=== PATIENT | female | born 1950 | race Caucasian/White ===

== ENCOUNTER 2020-11-01 08:39 | Outpatient (REF) | payer MEDICARE, OTHER, SELFPAY ==
--- NOTE | 2020-11-01 08:42 | MM_ITS ---
EXAMINATION: MM SCREENING DIGITAL BREAST TOMOSYNTHESIS, BILATERAL CLINICAL INFORMATION: Screening. Asymptomatic. The lifetime risk of breast cancer based on the Tyrer-Cuzick Model is 6%. COMPARISON: Mammography: 07/30/2019, 07/03/2018, 07/01/2017 TECHNIQUE: Digital breast tomosynthesis is performed in both the craniocaudal and mediolateral oblique views along with computer-aided detection (CAD). Synthesized 2D images are generated from the tomosynthesis. FINDINGS: There are scattered areas of fibroglandular density (ACR BI-RADS breast composition Category b). There are no significant masses, abnormal calcifications, or other abnormalities. There are no significant changes. Skin contours are smooth. MM/MM tomosynthesis screening BI IMPRESSION: No mammographic evidence of malignancy. ASSESSMENT: BI-RADS 1: Negative RECOMMENDATION: Routine annual mammography screening. This patient's information was entered into a reminder system with a target due date for their next mammogram.
== END 2020-11-01 08:40 | disposition home or self-care (01) ==
LOC: HO.MAMMO 08:39
PROVIDERS: PCP Internal Medicine; Visit Provider Internal Medicine
DX: Z12.31 Encounter for screening mammogram for malignant neoplasm of breast (principal)
CPT/HCPCS: 77063; 77067

== ENCOUNTER 2020-12-23 06:29 | Day surgery (SDC) | payer MEDICARE, OTHER, SELFPAY ==
[2020-12-19 14:24] VITALS: BMI 40.3
--- NOTE | 2020-12-21 13:53 | HO.ANESPROP2 ---
Documented by User: Gisel William 12/21/20 13:53 HPI - Anesthesia Eval Consult details Narrative: 70yo F for Colonoscopy PMFSH Past Medical History Medical History (Updated 12/23/20 @ 07:25 by Lia Avalos) Depression HTN (hypertension) Hx of heartburn Hx of Lyme disease Increased BMI Murmur Post-nasal drip Sciatica of right side Snoring Surgical History Surgical History (Updated 12/23/20 @ 07:26 by Lia Avalos) H/O colonoscopy History of Hx of appendectomy Hx of cholecystectomy Hx of hand surgery Hx of hernia repair Social History Social History (Updated 12/19/20 @ 14:21 by Vida Ford) Alcohol intake: never Smoking Status: Never smoker Use of substances other than those prescribed or required for medical reasons: No Have you been hit, kicked, punched, or otherwise hurt by someone within the past year? If so, by whom?: No Advance Directives: No Advance Directives Information Provided: No Advance Directives on File: No Meds Allergies Allergy/AdvReac Type Severity Reaction Status Date / Time amoxicillin [Augmentin] Allergy Unknown vomiting Verified 12/23/20 06:42 clavulanic acid [Augmentin] Allergy Unknown vomiting Verified 12/23/20 06:42 Codeine Phosphate Allergy Unknown Vomiting Uncoded 12/23/20 06:42 Home Medications Medication Instructions Recorded Confirmed Type amlodipine 1 tab PO DAILY 12/19/20 12/23/20 History duloxetine 1 cap PO DAILY 12/19/20 12/19/20 History ezetimibe-simvastatin 1 tab PO DAILY 12/19/20 12/19/20 History hydrochlorothiazide 1 tab PO DAILY 12/19/20 12/19/20 History irbesartan 1 tab PO DAILY 12/19/20 12/19/20 History metoprolol succinate 150 mg PO DAILY 12/19/20 12/23/20 History Exam Exam Date and Time: December 21, 2020 135 Height,Weight and Vital Signs: Height 5 ft 4 in Weight 106.594 kg Assessment and Plan Assessment Anesthesia Assessment: Chart Reviewed Documented by User: Lia Avalos 12/23/20 07:30 [facility] Past Medical History Medical History (Updated 12/23/20 @ 07:25 by Lia Avalos) Depression HTN (hypertension) Hx of heartburn Hx of Lyme disease Increased BMI Murmur Post-nasal drip Sciatica of right side Snoring Family History Family history of problems with anesthesia: No Surgical History Surgical History (Updated 12/23/20 @ 07:26 by Lia Avalos) H/O colonoscopy History of Hx of appendectomy Hx of cholecystectomy Hx of hand surgery Hx of hernia repair History of Problems with Anesthesia: No Social History Social History (Updated 12/19/20 @ 14:21 by Vida Ford) Alcohol intake: never Smoking Status: Never smoker Use of substances other than those prescribed or required for medical reasons: No Have you been hit, kicked, punched, or otherwise hurt by someone within the past year? If so, by whom?: No Advance Directives: No Advance Directives Information Provided: No Advance Directives on File: No Meds Allergies Allergy/AdvReac Type Severity Reaction Status Date / Time amoxicillin [Augmentin] Allergy Unknown vomiting Verified 12/23/20 06:42 clavulanic acid [Augmentin] Allergy Unknown vomiting Verified 12/23/20 06:42 Codeine Phosphate Allergy Unknown Vomiting Uncoded 12/23/20 06:42 Home Medications Medication Instructions Recorded Confirmed Type amlodipine 1 tab PO DAILY 12/19/20 12/23/20 History duloxetine 1 cap PO DAILY 12/19/20 12/19/20 History ezetimibe-simvastatin 1 tab PO DAILY 12/19/20 12/19/20 History hydrochlorothiazide 1 tab PO DAILY 12/19/20 12/19/20 History irbesartan 1 tab PO DAILY 12/19/20 12/19/20 History metoprolol succinate 150 mg PO DAILY 12/19/20 12/23/20 History Exam Height,Weight and Vital Signs: Vital Signs Temp Pulse Resp BP Pulse Ox 12/23/20 06:44 98.9 F 105 H 18 177/90 H 94 Airway Mallampati Class: II TM Dist: >3cm Neck ROM: Full Loose/Missing/Broken Teeth: Yes (Extractions) Heart: RRR Lungs: CTAB Assessment and Plan Assessment Anesthesia Assessment: Anesthesia Plan Discussed and Chart Reviewed Final Anesthetic Review NPO: Yes ASA Class: III Final Preanesthetic Review: No Changes in Pt Med Stat, Meds/Allgs Chart Reviewed, Consent Obtained/Reviewed and Anes Risks/Benef Reviewed Patient Risk: Intermediate Procedure Risk: Low Assessment/Block/Sedation in SS: Assess/Block/Sedation-SS Anesthetic Plan Anesthetic Plan: MAC: Disposition: Standard PACU
[2020-12-23 06:44] VITALS: BP 177/90; PULSE 105; RESP 18; TEMP 37.2; O2SAT 94
[2020-12-23] MEDS: Lactated Ringers 1,000 ML 100 ML IVCONT (07:04)
--- NOTE | 2020-12-23 07:30 | P.HPSUR_ITS ---
Pre-Procedural Eval Section B Chief Complaint: screening Details of Present Illness: screening Relevant Family History (Specify if Yes): No Relevant Social History: None Present Medications: see Short Stay Collaborative assessment Medical History: No relevant PMH History of Previous Operations: No relevant previous surgery Allergies: Allergies Allergy/AdvReac Type Severity Reaction Status Date / Time amoxicillin [Augmentin] Allergy Unknown vomiting Verified 12/23/20 06:42 clavulanic acid [Augmentin] Allergy Unknown vomiting Verified 12/23/20 06:42 Codeine Phosphate Allergy Unknown Vomiting Uncoded 12/23/20 06:42 Review of Systems Sugical H&P ROS: Negative: Constitution, Cardiovascular, Respiratory, Neurological, Psychiatric, Hem-Onc, Allergic/Immunologic, Gastrointestinal, Genitourinary, Musculoskeletal, Integumentary, Endocrine and Eyes/Ears/No se/Throat Exam Surgical H&P Exam: Normal: HEENT, Normal: Heart, Normal: Lungs, Normal: Extremities, Normal: Abdomen, Normal: Skin and Normal: Neurological Plan Diagnosis/Plan: Unchanged I have reviewed the history and physical and performed a pertinent physical examination on my patient. No changes have occurred unless specified.
--- NOTE | 2020-12-23 07:51 | PM.OP ---
Brief Operative Note Date of Service: 12/23/20 Pre-op diagnosis: screening Post-op diagnosis: same (colon polyps) Procedure: colonoscopy Surgeon: Ranjit Lucero Anesthesia: MAC Estimated blood loss (mL): 5 Pathology: other (polyps x3) Condition: stable Disposition: PACU
[2020-12-23 07:53] VITALS: BP 131/82; PULSE 94; RESP 12; TEMP 36.4; O2SAT 96
[2020-12-23 08:08] VITALS: BP 151/89; PULSE 81; RESP 20; TEMP 36.4; O2SAT 98
--- NOTE | 2020-12-23 08:20 | OP_ITS ---
SURGEON: Ranjit Lucero MD INDICATIONS: Colon cancer screening and prior history of adenomatous colon polyps. PREOPERATIVE DIAGNOSIS: POSTOPERATIVE DIAGNOSIS: PROCEDURE PERFORMED: Colonoscopy to the terminal ileum with biopsy and snare polypectomy. ESTIMATED BLOOD LOSS: COMPLICATIONS: ANESTHESIA: ASSISTANTS: SPECIMENS: MEDICATIONS: Monitored anesthesia care. DESCRIPTION OF PROCEDURE: History and physical performed. The risks and benefits of the procedure were explained to the patient. Informed consent was obtained. The patient was placed in the left lateral decubitus position. A digital rectal exam was performed and was found to be normal. The Olympus pediatric video colonoscope was introduced into the rectum and advanced to the cecum without difficulty. The cecum was identified by transillumination, palpation, and identification of ileocecal valve. Examination was performed and the scope was removed. She tolerated the procedure well and was taken to recovery area in stable condition. FINDINGS: The terminal ileum was examined and appeared normal. The visualized colonic mucosa was normal. The quality of prep was good. There was scattered diverticulosis. Three polyps were identified. The first at 70 cm was removed with biopsy forceps measuring less than 5 mm. Two other polyps were removed with a snare at 45 and 40 cm measuring less than 10 mm. No other polyps were identified. Retroflexed examination showed small internal hemorrhoids. No other lesions were seen. IMPRESSION: Colon polyps. RECOMMENDATIONS: Follow up the biopsy results. MD VITALY Ortega/CHARLES / [id number] MTDD
--- NOTE | 2020-12-23 08:36 | HO.POSTANES ---
Post Anesthesia Evaluation Post Anesthesia Evaluation Vital Signs: Vital Signs Temp Pulse Resp BP Pulse Ox 12/23/20 08:08 97.6 F 81 20 151/89 H 98 12/23/20 07:53 97.6 F 94 12 131/82 96 12/23/20 06:44 98.9 F 105 H 18 177/90 H 94 Anesthesia: Monitored Mental Status: Awake Pain Control: Satisfactory Nausea/Vomiting: None Anesthesia-Related Issues: No Anes. Related Issues
== END 2020-12-23 08:40 | disposition home or self-care (01) ==
LOC: HO.SSS 06:29
PROVIDERS: PCP Internal Medicine; Visit Provider Internal Medicine Gastroenterology
PROC: 0DJD8ZZ Inspection of Lower Intestinal Tract, Via Natural or Artificial Opening Endoscopic (ICD-10-PCS; CPT 45378; principal; 2020-12-23 07:30)
DX: Z12.11 Encounter for screening for malignant neoplasm of colon (principal); D12.6 Benign neoplasm of colon, unspecified; I10 Essential (primary) hypertension; Z79.899 Other long term (current) drug therapy; Z86.010 Personal history of colon polyps; Z88.0 Allergy status to penicillin
CPT/HCPCS: 45380; 45385; 88305

== ENCOUNTER 2021-03-02 09:29 | Outpatient (REF) | payer MEDICARE, OTHER, SELFPAY ==
--- NOTE | ~2021-03-02 | MM_ITS ---
EXAMINATION: BONE DENSITOMETRY CLINICAL INDICATION: Asymptomatic menopausal state. COMPARISON: Previous BD dated 07/17/2018 and baseline BD dated 11/15/2008. TECHNIQUE: Using a [employer] DXA System (software version: 13.1) manufactured by [employer], dual-energy x-ray absorptiometry was performed of the lumbar spine and left hip. The images are of good technical quality. Summary results are attached. FINDINGS: AP SPINE L1-L4: Current: BMD 1.094 g/cm2, Z-score -0.2, T-score -0.7, normal, 4.7% decrease from previous, 12.6% increase from baseline (<5% change is not significant). Prior: BMD 1.148 g/cm2. Baseline: BMD 0.972 g/cm2. LEFT FEMUR, NECK: Current: BMD 0.931 g/cm2, Z-score 0.1, T-score -0.8, normal. Prior: BMD 0.938 g/cm2. Baseline: BMD 0.907 g/cm2. LEFT FEMUR, TOTAL: Current: BMD 1.124 g/cm2, Z-score 1.5, T-score 0.9, normal, 1.4% increase from previous, 5.0% increase from baseline (<5% change is not significant). Prior: BMD 1.108 g/cm2. Baseline: BMD 1.070 g/cm2. IDENTIFIED RISK FACTORS: Menopause. Height loss. HISTORY OF FRACTURE: None listed. MEDICATIONS: Calcium supplement and/or multivitamin. Vitamin D. MM/XR DEXA axial skeleton IMPRESSION: 1. DIAGNOSIS: Normal bone density based on the lowest T-score value of -0.8 in the femoral neck applying World Health Organization criteria. 2. 10-YEAR FRACTURE RISK PREDICTION, FRAX: Major osteoporotic fracture (clinical spine, forearm, hip or shoulder) 7.5%. Hip fracture 0.6%. 3. Treatment Recommendations: NOF guidelines recommend consideration for treatment in postmenopausal women and men age 50 and older presenting with the following: -A hip or vertebral (clinical or morphometric) fracture. -T-score less than or equal to -2.5 at the femoral neck or spine after appropriate evaluation to exclude secondary causes. -Low bone mass at the hip or spine and a 10-year fracture probability by FRAX of greater than or equal to 3% for hip fracture or greater than or equal to 20% for major osteoporotic fracture based on the [place] adapted WHO algorithm. 4. Other Recommendations: All treatment decisions require clinical judgment and consideration of individual patient factors, including patient preferences, comorbidities, previous drug use, risk factors not captured in the FRAX model (e.g. frailty, falls, vitamin D deficiency, increased bone turnover, interval significant decline in bone density) and possible under or overestimation of fracture risk by FRAX. FUTURE SCAN RECOMMENDATION: People with diagnosed cases of osteoporosis or at high risk for fracture should have regular bone mineral density tests. For patients eligible for Medicare, routine testing is allowed once every 2 years. The testing frequency can be increased to one year for patients who have rapidly progressing disease, those who are receiving or discontinuing medical therapy to restore bone mass, or have additional risk factors.
== END 2021-03-02 09:30 | disposition home or self-care (01) ==
LOC: HO.MAMMO 09:29
PROVIDERS: Visit Provider Obstetrics & Gynecology
DX: Z13.820 Encounter for screening for osteoporosis (principal); Z78.0 Asymptomatic menopausal state; Z79.899 Other long term (current) drug therapy
CPT/HCPCS: 77080

== ENCOUNTER 2021-03-20 09:25 | Outpatient (REF) | payer MEDICARE, OTHER, SELFPAY ==
[2021-03-20 10:32] LABS: Hematocrit 42.8 % (37-47); Mean Corpuscular HGB Conc 32.7 g/dl (31.0-35.0); Mean Corpuscular Hemoglobin 29.7 pg (27.0-33.0); Mean Corpuscular Volume 90.7 fL (80-98); Mean Platelet Volume 10.8 fL (9.4-12.3); Platelet Count 330 X10*3/uL (160-400); Red Blood Count 4.72 X10*6/uL (4.20-5.50); Red Cell Distribution Width 13.9 % (11.0-16.0); White Blood Count 7.3 X10*3/uL (4.8-10.8)
[2021-03-20 10:50] LABS: Creatinine Urine 128.71 mg/dL; Microalbum/Creatinine Ratio Ur 9.3 ug/mg cr
[2021-03-20 11:14] LABS: TSH reflex Free T4 0.54 uIU/mL (0.32-4.0)
[2021-03-20 11:16] LABS: Alanine Aminotransferase 41 U/L (0-31); Albumin Level 4.3 g/dL (3.5-5.0); Alkaline Phosphatase 70 U/L (39-117); Anion Gap 14 (12-20); Aspartate Amino Transferase 26 U/L (5-31); Bilirubin Total 1.7 mg/dL (0.0-1.0); Blood Urea Nitrogen 16 mg/dL (9-16); Calcium 9.7 mg/dL (8.4-10.2); Carbon Dioxide 29 mmol/L (22-29); Chloride 100 mmol/L (96-108); Cholesterol 160 mg/dL; Estimated Glomerular Filt Rate > 60; Glucose Random 128 mg/dL (60-115); HDL Cholesterol 40 mg/dL; LDL Cholesterol Calculated 83 mg/dl; Potassium 3.9 mmol/L (3.3-5.1); Sodium 139 mmol/L (135-145); Total Protein 7.3 g/dL (6.5-8.0); Triglycerides 187 mg/dL
== END 2021-03-20 09:26 | disposition home or self-care (01) ==
LOC: HO.LAB 09:25
PROVIDERS: PCP Internal Medicine; Visit Provider Internal Medicine
DX: Z00.01 Encounter for general adult medical examination with abnormal findings (principal); E78.2 Mixed hyperlipidemia; I10 Essential (primary) hypertension; R53.82 Chronic fatigue, unspecified
CPT/HCPCS: 36415; 80053; 80061; 82043; 84443; 85027

== ENCOUNTER 2021-11-22 09:38 | Outpatient (REF) | payer MEDICARE, OTHER, SELFPAY ==
--- NOTE | ~2021-11-22 | MM_ITS ---
EXAMINATION: MM SCREENING DIGITAL BREAST TOMOSYNTHESIS, BILATERAL CLINICAL INFORMATION: Screening. Asymptomatic. The lifetime risk of breast cancer based on the Tyrer-Cuzick Model is 6%. COMPARISON: Mammography: 11/01/2020, 07/30/2019, 07/03/2018, 07/01/2017 TECHNIQUE: Digital breast tomosynthesis is performed in both the craniocaudal and mediolateral oblique views along with computer-aided detection (CAD). Synthesized 2D images are generated from the tomosynthesis. FINDINGS: There are scattered areas of fibroglandular density (ACR BI-RADS breast composition Category b). Parenchymal pattern is similar to prior studies. There is no developing density or architectural abnormality. The axilla and skin contours are unremarkable. No significant changes. MM/MM tomosynthesis screening BI IMPRESSION: No mammographic evidence of malignancy. ASSESSMENT: BI-RADS 1: Negative RECOMMENDATION: Routine annual mammography screening. This patient's information was entered into a reminder system with a target due date for their next mammogram.
== END 2021-11-22 09:39 | disposition home or self-care (01) ==
LOC: HO.MAMMO 09:38
PROVIDERS: PCP Internal Medicine; Visit Provider Internal Medicine
DX: Z12.31 Encounter for screening mammogram for malignant neoplasm of breast (principal)
CPT/HCPCS: 77063; 77067

== ENCOUNTER 2023-01-11 08:51 | Outpatient (REF) | payer MEDICARE, OTHER, SELFPAY ==
--- NOTE | ~2023-01-11 | MM_ITS ---
EXAMINATION: MM SCREENING DIGITAL BREAST TOMOSYNTHESIS, BILATERAL CLINICAL INFORMATION: Screening. Asymptomatic. The lifetime risk of breast cancer based on the Tyrer-Cuzick Model is 6%. COMPARISON: Mammography: 11/22/2021, 11/01/2020, 07/30/2019 TECHNIQUE: Digital breast tomosynthesis is performed in both the craniocaudal and mediolateral oblique views along with computer-aided detection (CAD). Synthesized 2D images are generated from the tomosynthesis. FINDINGS: There are scattered areas of fibroglandular density (ACR BI-RADS breast composition Category b). There are no significant masses, abnormal calcifications, or other abnormalities. Parenchymal pattern is similar to prior studies. There is no developing density or architectural abnormality. The axilla and skin contours are unremarkable. No significant changes. MM/MM tomosynthesis screening BI IMPRESSION: No mammographic evidence of malignancy. ASSESSMENT: BI-RADS 1: Negative RECOMMENDATION: Routine annual mammography screening. This patient's information was entered into a reminder system with a target due date for their next mammogram.
== END 2023-01-11 08:52 | disposition home or self-care (01) ==
LOC: HO.MAMMO 08:51
PROVIDERS: PCP Internal Medicine; Visit Provider Internal Medicine
DX: Z12.31 Encounter for screening mammogram for malignant neoplasm of breast (principal)
CPT/HCPCS: 77063; 77067

== ENCOUNTER → 2024-01-30 13:00 | Outpatient (BNV) | payer MEDICARE, OTHER, SELFPAY | PROVIDERS: PCP Internal Medicine; Visit Provider Radiology Diagnostic Radiology | DX: Z12.31 Encounter for screening mammogram for malignant neoplasm of breast (principal) | CPT/HCPCS: 77063; 77067 ==

== ENCOUNTER 2024-01-30 13:14 | Outpatient (REF) | payer MEDICARE, OTHER, SELFPAY ==
--- NOTE | ~2024-01-30 | MM_ITS ---
EXAMINATION: MM SCREENING DIGITAL BREAST TOMOSYNTHESIS, BILATERAL CLINICAL INFORMATION: Screening. Asymptomatic. COMPARISON: Mammography: 01/11/2023, 11/22/2021, 11/01/2020, 07/30/2019, dating back to 2014. TECHNIQUE: Digital breast tomosynthesis is performed in both the craniocaudal and mediolateral oblique views along with computer-aided detection (CAD). Synthesized 2D images are generated from the tomosynthesis. FINDINGS: The breasts are almost entirely fatty (ACR BI-RADS breast composition Category a). There are no suspicious masses, suspicious grouped calcifications, or areas of architectural distortion in either breast. The parenchymal pattern is stable from prior exams. No skin or axillary abnormality. MM/MM tomosynthesis screening BI IMPRESSION: No mammographic evidence of malignancy. ASSESSMENT: BI-RADS BI-RADS 1 - Negative RECOMMENDATION: Routine annual mammography screening. 1 year F/U This examination should not preclude the clinical evaluation of a suspicious palpable abnormality. This patient's information was entered into a reminder system with a target due date for their next mammogram.
--- NOTE | ~2024-01-30 | MM_ITS ---
EXAMINATION: BONE DENSITOMETRY CLINICAL INDICATION: Osteopenia. COMPARISON: Previous BD dated 03/02/2021 and baseline BD dated 11/15/2008. TECHNIQUE: Using a [employer] DXA System (software version: 13.1) manufactured by [employer], dual-energy x-ray absorptiometry was performed of the lumbar spine and left hip. The images are of good technical quality. Summary results are attached. FINDINGS: LEFT FEMUR, NECK: Current: BMD 0.984 g/cm2, Z-score 0.7, T-score -0.4, normal. Prior: BMD 0.931 g/cm2. Baseline: BMD 0.907 g/cm2. LEFT FEMUR, TOTAL: Current: BMD 1.104 g/cm2, Z-score 1.5, T-score 0.8, normal, 1.8% decrease from previous, 3.2% increase from baseline (<5% change is not significant). Prior: BMD 1.124 g/cm2. Baseline: BMD 1.070 g/cm2. AP SPINE L1-L4: Current: BMD 1.200 g/cm2, Z-score 0.7, T-score 0.2, normal, 9.7% increase from previous, 23.5% increase from baseline (<5% change is not significant). Prior: BMD 1.094 g/cm2. Baseline: BMD 0.972 g/cm2. IDENTIFIED RISK FACTORS: Menopause, height loss, thiazide. HISTORY OF FRACTURE: None listed. MEDICATIONS: Calcium. MM/XR DEXA axial skeleton IMPRESSION: 1. DIAGNOSIS: Normal bone density based on the lowest T-score value of -0.4 in the femoral neck applying World Health Organization criteria. 2. 10-YEAR FRACTURE RISK PREDICTION, FRAX: According to the guidelines, FRAX calculation should only be performed on patients in the osteopenia bone density category. Therefore, FRAX was not performed on this patient. 3. Treatment Recommendations: NOF guidelines recommend consideration for treatment in postmenopausal women and men age 50 and older presenting with the following: -A hip or vertebral (clinical or morphometric) fracture. -T-score less than or equal to -2.5 at the femoral neck or spine after appropriate evaluation to exclude secondary causes. -Low bone mass at the hip or spine and a 10-year fracture probability by FRAX of greater than or equal to 3% for hip fracture or greater than or equal to 20% for major osteoporotic fracture based on the [place] adapted WHO algorithm. 4. Other Recommendations: All treatment decisions require clinical judgment and consideration of individual patient factors, including patient preferences, comorbidities, previous drug use, risk factors not captured in the FRAX model (e.g. frailty, falls, vitamin D deficiency, increased bone turnover, interval significant decline in bone density) and possible under or overestimation of fracture risk by FRAX. FUTURE SCAN RECOMMENDATION: People with diagnosed cases of osteoporosis or at high risk for fracture should have regular bone mineral density tests. For patients eligible for Medicare, routine testing is allowed once every 2 years. The testing frequency can be increased to one year for patients who have rapidly progressing disease, those who are receiving or discontinuing medical therapy to restore bone mass, or have additional risk factors.
== END 2024-01-30 13:15 | disposition home or self-care (01) ==
LOC: HO.MAMMO 13:14
PROVIDERS: PCP Internal Medicine; Visit Provider Internal Medicine
DX: Z12.31 Encounter for screening mammogram for malignant neoplasm of breast (principal); Z13.820 Encounter for screening for osteoporosis; M85.80 Other specified disorders of bone density and structure, unspecified site; Z78.0 Asymptomatic menopausal state
CPT/HCPCS: 77063; 77067; 77080

== ENCOUNTER 2025-01-05 06:19 | Day surgery (SDC) | payer MEDICARE, OTHER, SELFPAY ==
[2024-12-31 10:57] VITALS: BMI 40.3
--- NOTE | 2025-01-01 09:12 | HO.ANESPROP2 ---
Documented by User: Gisel William NP 01/01/25 09:12 HPI - Anesthesia Eval Consult details Narrative: 74yo F for Colonoscopy PMFSH Active Problems Active Problems: All Active Problems H/O colonoscopy (Acute) Snoring (Acute) Increased BMI (Acute) Past Medical History Medical History Snoring Increased BMI Hx of heartburn Hx of Lyme disease Sciatica of right side Depression HTN (hypertension) Post-nasal drip Murmur Family History Family history of problems with anesthesia: No Surgical History Surgical History Hx of tonsillectomy H/O colonoscopy Hx of hand surgery Hx of hernia repair Hx of appendectomy Hx of cholecystectomy History of History of Problems with Anesthesia: No Social History Social History Alcohol intake: never Patient Tobacco Use Status: Never used Tobacco Use of substances other than those prescribed or required for medical reasons: No Are you DNR?: No Advance Directives: No Advance Directives Information Provided: Yes Meds Allergies Allergy/AdvReac Type Severity Reaction Status Date / Time amoxicillin [Augmentin] Allergy Intermediate vomiting Verified 01/05/25 06:50 clavulanic acid [Augmentin] Allergy Intermediate vomiting Verified 01/05/25 06:50 codeine Allergy Intermediate Vomiting Verified 01/05/25 06:50 chocolate Allergy Unknown Unknown Verified 01/05/25 06:50 oxycodone Allergy Unknown Unknown Verified 01/05/25 06:50 shellfish derived [shellfish] Allergy Unknown Unknown Verified 01/05/25 06:50 Home Medications ?Medication ?Instructions ?Recorded ?Confirmed ?Last Taken ?Type amlodipine 5 mg tablet 1 tab PO DAILY 12/19/20 01/05/25 01/05/25 06:00 History duloxetine 30 mg capsule,delayed 2 cap PO DAILY 12/19/20 01/05/25 Unknown History release ezetimibe 10 mg-simvastatin 20 mg 1 tab PO DAILY 12/19/20 01/05/25 Unknown History tablet hydrochlorothiazide 25 mg tablet 1 tab PO DAILY 12/19/20 01/05/25 Unknown History irbesartan 300 mg tablet 1 tab PO DAILY 12/19/20 01/05/25 Unknown History metoprolol succinate 100 mg 200 mg PO DAILY 12/19/20 01/05/25 01/05/25 06:00 History capsule sprinkle, ext. release 24 hr metformin 500 mg tablet 500 mg PO DAILY 12/31/24 01/05/25 Unknown History Exam Height,Weight and Vital Signs: Height 5 ft 4 in Weight 106.594 kg Assessment and Plan Assessment Anesthesia Assessment: Chart Reviewed Final Anesthetic Review Family History of Problems with Anesthesia: No History of Problems with Anesthesia: No Documented by User: Pawel Cabezas MD 01/05/25 08:01 [facility], [facility] Past Medical History Medical History Snoring Increased BMI Hx of heartburn Hx of Lyme disease Sciatica of right side Depression HTN (hypertension) Post-nasal drip Murmur Surgical History Surgical History Hx of tonsillectomy H/O colonoscopy Hx of hand surgery Hx of hernia repair Hx of appendectomy Hx of cholecystectomy History of Social History Social History Alcohol intake: never Patient Tobacco Use Status: Never used Tobacco Use of substances other than those prescribed or required for medical reasons: No Are you DNR?: No Advance Directives: No Advance Directives Information Provided: Yes Meds Allergies Allergy/AdvReac Type Severity Reaction Status Date / Time amoxicillin [Augmentin] Allergy Intermediate vomiting Verified 01/05/25 06:50 clavulanic acid [Augmentin] Allergy Intermediate vomiting Verified 01/05/25 06:50 codeine Allergy Intermediate Vomiting Verified 01/05/25 06:50 chocolate Allergy Unknown Unknown Verified 01/05/25 06:50 oxycodone Allergy Unknown Unknown Verified 01/05/25 06:50 shellfish derived [shellfish] Allergy Unknown Unknown Verified 01/05/25 06:50 Home Medications ?Medication ?Instructions ?Recorded ?Confirmed ?Last Taken ?Type amlodipine 5 mg tablet 1 tab PO DAILY 12/19/20 01/05/25 01/05/25 06:00 History duloxetine 30 mg capsule,delayed 2 cap PO DAILY 12/19/20 01/05/25 Unknown History release ezetimibe 10 mg-simvastatin 20 mg 1 tab PO DAILY 12/19/20 01/05/25 Unknown History tablet hydrochlorothiazide 25 mg tablet 1 tab PO DAILY 12/19/20 01/05/25 Unknown History irbesartan 300 mg tablet 1 tab PO DAILY 12/19/20 01/05/25 Unknown History metoprolol succinate 100 mg 200 mg PO DAILY 12/19/20 01/05/25 01/05/25 06:00 History capsule sprinkle, ext. release 24 hr metformin 500 mg tablet 500 mg PO DAILY 12/31/24 01/05/25 Unknown History Exam Airway Mallampati Class: III TM Dist: >3cm Neck ROM: Full Assessment and Plan Assessment Anesthesia Assessment: Anesthesia Plan Discussed Final Anesthetic Review NPO: Yes ASA Class: III Final Preanesthetic Review: No Changes in Pt Med Stat, Consent Obtained/Reviewed and Anes Risks/Benef Reviewed Patient Risk: Intermediate Procedure Risk: Low Anesthetic Plan Anesthetic Plan: MAC: Disposition: Standard PACU
[2025-01-05 07:04] LABS: Glucose, Whole Blood 147 mg/dL (60-115)
[2025-01-05 07:09] VITALS: BP 155/83; PULSE 93; RESP 16; TEMP 37.5; O2SAT 94; BMI 40.1
[2025-01-05] MEDS: Lactated Ringers 1,000 ML 100 ML IVCONT (07:24)
--- NOTE | 2025-01-05 07:31 | MHC.SHP ---
Pre-Procedural Eval Section A - 24 Hr Update-Section A only Date of Service: 01/05/25 Section B - Complete if H&P > 30 days Chief Complaint: screening Details of Present Illness: see H&P no changes Relevant Family History (Specify if Yes): No Relevant Social History: None Present Medications: see Short Stay Collaborative assessment Medical History: No relevant PMH History of Previous Operations: No relevant previous surgery Allergies: Allergies Allergy/AdvReac Type Severity Reaction Status Date / Time amoxicillin [Augmentin] Allergy Intermediate vomiting Verified 01/05/25 06:50 clavulanic acid [Augmentin] Allergy Intermediate vomiting Verified 01/05/25 06:50 codeine Allergy Intermediate Vomiting Verified 01/05/25 06:50 chocolate Allergy Unknown Unknown Verified 01/05/25 06:50 oxycodone Allergy Unknown Unknown Verified 01/05/25 06:50 shellfish derived [shellfish] Allergy Unknown Unknown Verified 01/05/25 06:50 Review of Systems Sugical H&P ROS: Negative: Constitution, Cardiovascular, Respiratory, Neurological, Psychiatric, Hem-Onc, Allergic/Immunologic, Gastrointestinal, Genitourinary, Musculoskeletal, Integumentary, Endocrine and Eyes/Ears/Nose/Throat Exam Surgical H&P Exam: Normal: HEENT, Normal: Heart, Normal: Lungs, Normal: Extremities, Normal: Abdomen, Normal: Skin and Normal: Neurological Plan Diagnosis/Plan: Unchanged I have reviewed the history and physical and performed a pertinent physical examination on my patient. No changes have occurred unless specified. Time Spent With Patient Time: Total time managing care of this patient today ____ minutes.
[2025-01-05 08:13] VITALS: BP 96/53; PULSE 76; RESP 16; TEMP 36.1; O2SAT 94
--- NOTE | 2025-01-05 08:16 | OP_ITS ---
DATE OF SERVICE: 01/05/2025 SURGEON: Ranjit Lucero MD INDICATIONS: Colon cancer screening. PREOPERATIVE DIAGNOSIS: POSTOPERATIVE DIAGNOSIS: PROCEDURE PERFORMED: Colonoscopy to the terminal ileum with snare polypectomy. ESTIMATED BLOOD LOSS: COMPLICATIONS: ANESTHESIA: Monitored anesthesia care. ASSISTANTS: SPECIMENS: DESCRIPTION OF PROCEDURE: A history and physical were performed. The risks and benefits of the procedure were explained to the patient and informed consent was obtained. The patient was placed in the left lateral decubitus position. A digital rectal exam was performed and was found to be normal. The Olympus pediatric video colonoscope was introduced into the rectum and advanced to the cecum. The cecum was identified by transillumination, palpation, and identification of the ileocecal valve. Examination was performed and the scope was removed. She tolerated the procedure well and was taken to recovery in stable condition. FINDINGS: The terminal ileum was examined and appeared normal. The visualized colonic mucosa was normal. The quality of prep was good. Three polyps were removed with a snare; all measured less than 10 mm. These were located in the cecum at 50 cm and 40 cm. There was mild sigmoid diverticulosis. Retroflexed examination showed small internal hemorrhoids. IMPRESSION: Colon polyps. RECOMMENDATION: Follow up the biopsy results. MD VITALY Ortega/MODL / [id number]
[2025-01-05 08:28] VITALS: BP 140/72; PULSE 74; RESP 18; TEMP 36.4; O2SAT 95
== END 2025-01-05 08:58 | disposition home or self-care (01) ==
PROVIDERS: PCP Internal Medicine; Visit Provider Internal Medicine Gastroenterology
PROC: 0DJD8ZZ Inspection of Lower Intestinal Tract, Via Natural or Artificial Opening Endoscopic (ICD-10-PCS; CPT 45378; principal; 2025-01-05 07:30)
DX: Z12.11 Encounter for screening for malignant neoplasm of colon (principal); Z86.0101 Personal history of adenomatous and serrated colon polyps; D12.0 Benign neoplasm of cecum; D12.5 Benign neoplasm of sigmoid colon; K57.30 Diverticulosis of large intestine without perforation or abscess without bleeding; K64.8 Other hemorrhoids; I10 Essential (primary) hypertension; E78.5 Hyperlipidemia, unspecified; E11.9 Type 2 diabetes mellitus without complications; F32.A Depression, unspecified; Z86.19 Personal history of other infectious and parasitic diseases; Z79.84 Long term (current) use of oral hypoglycemic drugs; Z79.899 Other long term (current) drug therapy; Z88.1 Allergy status to other antibiotic agents; Z88.5 Allergy status to narcotic agent; Z98.890 Other specified postprocedural states
CPT/HCPCS: 45385; 82947; 88305; J2003; J2704

== ENCOUNTER 2025-09-07 13:32 | Outpatient (REF) | payer MEDICARE, OTHER, SELFPAY | END 2025-09-07 13:33 | disposition home or self-care (01) | LOC: HO.MAMMO 13:32 | PROVIDERS: PCP Internal Medicine; Visit Provider Internal Medicine | DX: Z12.31 Encounter for screening mammogram for malignant neoplasm of breast (principal) | CPT/HCPCS: 77063; 77067 ==

== ENCOUNTER → 2025-09-07 13:45 | Outpatient (BNV) | payer MEDICARE, OTHER, SELFPAY | PROVIDERS: PCP Internal Medicine; Visit Provider Internal Medicine | DX: Z12.31 Encounter for screening mammogram for malignant neoplasm of breast (principal) | CPT/HCPCS: 77063; 77067 ==

== ENCOUNTER 2025-09-27 10:40 | Outpatient (REF) | payer MEDICARE, OTHER, SELFPAY ==
--- NOTE | ~2025-09-27 | MM_ITS ---
EXAMINATION(S): 1. MM DIAGNOSTIC DIGITAL BREAST TOMOSYNTHESIS, LEFT 2. TARGETED ULTRASOUND OF THE LEFT BREAST CLINICAL INFORMATION: Callback from screening for left breast oval mass in the upper outer quadrant anterior depth. COMPARISON: Comparison made to multiple prior, most recent screening mammogram on September 07, 2025, and most remote July 01, 2017. TECHNIQUE: Digital breast tomosynthesis is performed in full field ML 90 degrees along with computer-aided detection (CAD). Synthesized 2D images are generated from the tomosynthesis. Spot compression tomosynthesis were obtained. FINDINGS: BREAST COMPOSITION: There are scattered areas of fibroglandular density. LEFT BREAST: Previously described mass in the upper outer quadrant persists on today's images, measuring approximately 0.5 cm, at 2.5 cm from the nipple (spot MLO /, spot CC ). This has been present in multiple prior studies, for example in 2017, when measured 0.3 cm. Targeted ultrasound of the left breast was performed at the location of the mammographic finding. The survey shows a 0.5 x 0.2 x 0.4 cm partially septated cyst at 1 o'clock position 2 cm from the nipple. No internal vascularity demonstrated with color Doppler evaluation. This finding correlates with the mammographic finding. MM/MM tomosynthesis added views L IMPRESSION: LEFT BREAST: Chronic septated cyst at 1 o'clock position 2 cm from the nipple. Benign, no evidence of malignancy. Normal interval follow-up is recommended in 12 months. ASSESSMENT: BI-RADS: Category 2: Benign RECOMMENDATION: 1 year F/U Results were provided to the patient at time of visit by the technologist. Electronically signed by: Jasson Almanzar MD 09/27/2025 11:30 AM [facility]
--- OUTSIDE RECORDS SUMMARY | 2025-09-27 12:47 | XMS_ITS | Clinical Summary ---
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 3 Active ezetimibe-simva statin (VYTORIN) 10-20 mg per tablet Take 1 tablet by mouth every morning. 3 Active hydroCHLOROthia zide (HYDRODIURIL) 25 MG tablet 3 Active ibuprofen (ADVIL,MOTRIN) 600 MG tablet Take 600 mg by mouth every 6 (six) hours as needed. 3 Active ipratropium (ATROVENT) 21 mcg (0.03 %) nasal spray 3 Active irbesartan (AVAPRO) 300 MG tablet Take 1 tablet by mouth every morning. 3 Active amLODIPine (NORVASC) 10 MG tablet Take 10 mg by mouth every morning. 4 Active metoprolol succinate (TOPROL-XL) 200 MG 24 hr tablet Take 1 tablet by mouth every morning. 4 Active albuterol 90 mcg/actuation inhaler Inhale 1-2 puffs into the lungs every 4 (four) hours as needed for wheezing or shortness of breath/dyspnea (cough). 8 g 4 Active DULoxetine (CYMBALTA) 30 MG capsule Take 1 capsule by mouth every morning. 5 Active metFORMIN (GLUCOPHAGE-XR) 500 MG 24 hr tabletIndicatio ns:Type 2 diabetes mellitus without complication, without long-term current use of insulin Take 1 tablet (500 mg total) by mouth daily with breakfast. 90 tablet 3 5 Active Active Problems Problem Noted Date Diagnosed Date Type 2 diabetes mellitus wit hout complication, without long-term current use of insulin 09/02/2024 Assessment & Plan (08/25/2025 10:33 AM EDT): Control is good based upon the patient's last A1C of 6.5%. Her daily control is unknown as she is not checking her glucose levels. She is not using any medications to cause hypoglycemia. Will maintain her current regimen. Continue to work on eating healthy and trying to be active. To call or message with any issues managing her glucose levels. Up to date with [facility]. Labs ordered to be done today Assessment & Plan (03/19/2025 1:18 PM EDT): 74 yo woman with diabetes. Control appears good. Taking/tolerating metformin, but is forgetting, thinks will do better taking earlier in the day. Will shift to extended release to facilitate adherence if dose needs to be increased moving forward. Continue to work on eating healthy & keeping active. Umalb/creat up to date, normal. Up to date with [facility]. Assessment & Plan (01/27/2025 12:43 PM EDT): Control is good based upon the patient's last A1C of 7.3%. Her daily control is unknown as she is not checking her glucose levels. She is not using any medications to cause hypoglycemia. Will maintain her current regimen. Continue to work on eating healthy and trying to be active. To call or message with any issues managing her glucose levels. [facility] ordered Assessment & Plan (09/02/2024 1:16 PM EDT): 74 yo woman with diabetes, sounds as if recently diagnosed. Uncertain control as no recent labs or SMBG results. Discussed progressive nature of disease. Discussed rationale & goals for control. Role of diet, exercise, medications. Role of & goals for HbA1c. Reviewed options to improve control with risks & benefits, including intensification of lifestyle & available medications. Continue to work on eating healthy & keeping active. To call or send in log with problems with glucose control. Foot & nail care good. Up to date with ophtho. BP under good control. Will check labs today & determine whether she needs to start rx/metformin. Discussed risks/benefits, importance of taking w/ food & titrating dose up as tolerated. Fatigue 09/02/2024 Essential hypertension Assessment & Plan (03/19/2025 1:19 PM EDT): Well controlled. 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 current use of oral hypoglycemic drug Encounters Date Type Department Care Team Description 08/24/2025 3:32 PM EDT - 08/24/2025 11:59 PM EDT Hospital Encounter [facility] [place] [address] Vidhi Ruano PA-C Discharge Disposition: Home or Self Care 08/24/2025 2:50 PM EDT Office Visit [facility] [address] [place] [address] [place] [address] Vidhi Ruano PA-C Type 2 diabetes mellitus without complication, without long-term current use of insulin (Primary Dx) from Last 3 Months Social History Tobacco Use Types Packs/Day Years Used Date Smoking Tobacco: Never Smokeless Tobacco: Never Tobacco Cessation:Counseling Given: Not Answered Education Answer Date Recorded Are you interested in more education? Not on shivani e 09/30/2023 Are you concerned about learning? Not on file 09/30/2023 No 09/30/2023 No 09/30/2023 Digital Access Answer Date Recorded No 09/30/2023 No 09/30/2023 Reliable internet access at home? Not on file 09/30/2023 Device with a working camera? Not on file Comments Unknown Sex and Gender Information Value Date Recorded Sex Assigned at Not on file Legal Sex Female 6:00 AM EST Gender Identity Female 03/18/2025 11:22 PM EDT Sexual Orientation Straight 03/18/2025 11 :22 PM EDT Last Filed Vital Signs Vital Sign Reading Time Taken Comments Blood Pressure 126/70 08/24/2025 2:47 PM EDT Pulse 72 08/24/2025 2:47 PM EDT Temperature 36.8 C (98.3 F) 06/06/2025 10:55 AM EDT Respiratory Rate 20 06/06/2025 10:55 AM EDT Oxygen Saturation 97% 06/06/2025 10:55 AM EDT Inhaled Oxygen Concentration - - Weight 103.4 kg (228 lb) 08/24/2025 2:47 PM EDT Height 160 cm (5' 3 ) 08/24/2025 2:47 PM EDT Body Mass Index 40.39 08/24/2025 2:47 PM EDT Plan of Treatment Upcoming Encounters Date Type Department Care Team (Late st Contact Info) Description 12/16/2025 10:00 AM EST Office Visit [facility] [address] [place] [address] [place] [address] Liz Sandoval MD [address] [place] [phone] 03/11/2026 2:50 PM EDT Office Visit [facility] [address] [place] [address] [place] [address] Vidhi Ruano PA-C [address] [place] [phone] Health Maintenance Due Date Last Done Comments Adult Td,Tdap Booster 1951 DEPRESSION SCREENING 1963 HEPATITIS C SCREENING 1969 MAMMOGRAM 1991 COLOGUARD 1996 COLONOSCOPY 1996 COLORECTAL CANCER SCREENING 1996 FIT TEST 1996 FOBT 1996 SIGMOIDOSCOPY 1996 VIRTUAL COLONOSCOPY 1996 RSV VACCINE (1 - Risk 50-74 years 1-dose series) 2001 OSTEOPOROSIS SCREENING INITIAL (ONE-TIME) 2016 PNEUMOCOCCAL VACCINES (50+ years) (2 of 2 - PPSV23, PCV20, or PCV21) 10/31/2016 09/05/2016 DIABETIC EYE EXAM 09/02/2024 INFLUENZA VACCINE (#1) 2025 , 09/23/2022, 08/22/2021, Additional history exists COVID-19 VACCINE ( season) 2025 08/15/2024, 10/12/2023, 09/09/2022, Additional history exists LIPID PANEL 09/02/2025 09/02/2024 BLOOD PRESSURE 02/22/2026 08/24/2025 HEMOGLOBIN A1C 02/22/2026 08/24/2025, 03/0 05/2025, 09/02/2024 CREATININE LEVEL 08/24/2026 08/24/2025, 05/2025, 09/29/2024, Additional history exists POTASSIUM LEVEL 08/24/2026 08/24/2025, 03/0 05/2025, 09/29/2024, Additional history exists ZOSTER VACCINES Completed 12/06/2023, 06/23/2023 SMOKING STATUS SCREENING (Once After 26 Yrs) Completed 03/19/2025 HEPATITIS A VACCINES Aged Out No long er eligible based on patient's age to complete this topic HIB VACCINES Aged Out No longer eligi ble based on patient's age to complete this topic IPV VACCINES Aged Out No longer eligi ble based on patient's age to complete this topic MENINGOCOCCAL VACCINES (ACWY) Aged Out No longer eligible based on patient's age to complete this topic MENINGOCOCCAL VACCINES (B) Aged Out N o longer eligible based on patient's age to complete this topic Medical Devices Not on file Procedures Procedure Name Priority Date/Time Associated Diagnosis Comments BASIC METABOLIC PANEL (BMP) Routine 08/24/2025 3:39 PM EDT Type 2 diabetes mellitus without complication, without long-term current use of insulin ASPARTATE AMINOTRANSFERASE (AST) Routine 08/24/2025 3:39 PM EDT Type 2 diabetes mellitus without complication, without long-term current use of insulin ALANINE AMINOTRANSFERASE (ALT) Routine 08/24/2025 3:39 PM EDT Type 2 diabetes mellitus without complication, without long-term current use of insulin HEMOGLOBIN A1C Routine 08/24/2025 3:39 PM EDT Type 2 diabetes mellitus without complication, without long-term current use of insulin LIPID PANEL Routine 09/02/2024 12:28 PM EDT Type 2 diabetes mellitus without complication, without long-term current use of insulin from Last 3 Months or Most Recently Relevant to Health Maintenance Results * Alanine aminotransferase (ALT) (08/24/2025 3:39 PM EDT) ALT 25 0 - 40 U/L [facility] Blood 08/24/2025 3:39 PM EDT 08/24/2025 3:45 PM EDT us Vidhi Ruano PA-C LAB BLOOD BKR ORDKareem AMEZCUA Final Result Performing Organization Address City/[facility]/ZIP Co de Phone Number [address] [address] * Aspartate aminotransferase (AST) (08/24/2025 3:39 PM EDT) AST 23 0 - 37 U/L [facility] Blood 08/24/2025 3:39 PM EDT 08/24/2025 3:45 PM EDT us Vidhi Ruano PA-C LAB BLOOD BKR ORDE RABKYLE Final Result Performing Organization Address City/[facility]/ZIP Co de Phone Number [address] [address] * (ABNORMAL) Hemoglobin A1c (08/24/2025 3:39 PM EDT) HEMOGLOBIN A1C 6.7(H) 4.3 - 5.8 % [facility] Blood 08/24/2025 3:39 PM EDT 08/24/2025 3:45 PM EDT Vidhi Ruano PA-C LAB BLOOD BKMei ORTEGAKYLE Final Result Performing Organization Address [facility] Co de Phone Number [address] [address] * (ABNORMAL) Basic metabolic panel (08/24/2025 3:39 PM EDT) SODIUM 137 133 - 146 mmol/L [facility] CHLORIDE 98 96 - 108 mmol/L [facility] POTASSIUM 3.8 3.3 - 5.1 mmol/L [facility] CO2 26 21 - 35 mmol/L [facility] BUN 29(H) 6 - 19 mg/dL [facility] CREATININE 0.90 0.5 - 1.5 mg/dL [facility] GLUCOSE 103(H) 70 - 99 mg/dL [facility] CALCIUM 10.0 8.4 - 10.3 mg/dL [facility] EGFR 67 >59 mL/min/1.7 3m2 [facility] Comment:Estimated glomerular filtration rate calculated using the CKD-EPI refit equation. ANION GAP 17 10 - 20 mmol/L [facility] Blood 08/24/2025 3:39 PM EDT 08/24/2025 3:45 PM EDT Vidhi Ruano PA-C LAB BLOOD YANEMei CHLOE ORTEGAKYLE Final Result Performing Organization Address [facility]/ZIP Co de Phone Number [address] [address] * (ABNORMAL) Lipid panel (09/02/2024 12:28 PM EDT) HDL 40 mg/dL [facility] Comment: Interpretation <40 mg/dL: Low HDL cholesterol (major risk factor for CHD) Greater than or equal to 60 mg/dL: High HDL cholesterol ( negative risk factor for CHD) HDL - cholesterol is affected by a number of factors, e.g. smoking, excerise, hormones, sex and age. CHOLESTEROL 144 0 - 240 mg/dL [facility] TRIGLYCERIDES 171(H) 30 - 160 mg/dL [facility] LDL 70 50 - 129 mg/dL [facility] Comment: LDL levels in terms of risk for coronary heart disease: <100 mg/dL: Optimal 100-129 mg/dL: Near or above optimal 130-159 mg/dL: Borderline high 160-189 mg/dL: High >190 mg/dL: Very High CARDIAC RISK RATIO 3.6 3.3 - 4.4 C [facility] Blood 09/02/2024 12:2 8 PM EDT 09/02/2024 12:36 PM EDT us Liz Sandoval MD LAB BLOOD BKR ORDERABL ES Final Result Performing Organization Address City/State/[facility] Co de Phone Number [facility] [address] [place] [address] from Last 3 Months or Most Recently Relevant to Health Maintenance Insurance MEDICARE PART A & B [facility] MEDICARE SUPPLEMENT MEDICARE PART A & B [facility] MEDICARE SUPPLEMENT MEDICARE PART A & B [facility] MEDICARE SUPPLEMENT MEDICARE PART A & B [facility] MEDICARE SUPPLEMENT MEDICARE PART A & B [facility] MEDICARE SUPPLEMENT MEDICARE PART A & B [facility] MEDICARE SUPPLEMENT 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 It is not the complete legal health record.[facility]
== END 2025-09-27 10:41 | disposition home or self-care (01) ==
LOC: HO.MAMMO 10:40
PROVIDERS: PCP Internal Medicine; Visit Provider Internal Medicine
DX: N63.21 Unspecified lump in the left breast, upper outer quadrant (principal)
CPT/HCPCS: 76642; 77061; 77065

== ENCOUNTER → 2025-09-27 11:00 | Outpatient (BNV) | payer MEDICARE, OTHER, SELFPAY | PROVIDERS: PCP Internal Medicine; Visit Provider Radiology Body Imaging | DX: N63.21 Unspecified lump in the left breast, upper outer quadrant (principal) | CPT/HCPCS: 76642; 77065; G0279 ==